=== PATIENT | male | born 1990 | race Caucasian/White ===

== ENCOUNTER 2018-10-06 10:08 | Emergency (ER) | payer SELFPAY ==
[2018-10-06] MEDS ORDERED: Acetaminophen/HYDROcodone 325-5 MG Tab PO ONE (10:29)
--- NOTE | 2018-10-06 10:34 | EDM.PDOC ---
ED HPI GENERAL MEDICAL PROBLEM - General Chief Complaint: ENT Problem Stated Complaint: FLASH BURN Time Seen by Provider: 10/06/18 10:19 Source of Information: Reports: Patient, RN Notes Reviewed - History of Present Illness INITIAL COMMENTS - FREE TEXT/NARRATIVE: 28-year-old male comes in with severe bilateral eye discomfort. 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 Not believe he experienced any UV light exposure from his old welding, he is very careful with his own helmet and I protection but states he did catch some flash from a different welder apprentice arc that he had to try help out with a difficult problem. He came off duty about 4 hours ago started having severe pain both eyes about an hour ago. He did not get anything into either eye from grinding or other shop activities. He does not wear contacts. Bilateral Eye Pain Score (Numeric/FACES): 8 - Related Data Allergies Allergy/AdvReac Type Severity Reaction Status Date / Time No Known Allergies Allergy Verified 10/06/18 10:17 Home Meds: Home Meds Acetaminophen/HYDROcodone [[place] 325-5 MG] 1 tab PO Q6H PRN #10 tablet 10/06/18 [Rx] ED ROS ENT - Review of Systems Review Of Systems: See Below Constitutional: Denies: Fever, Chills HEENT: Reports: Eye Pain (Bilateral). Denies: Eye Discharge Respiratory: Denies: Shortness of Breath Cardiovascular: Denies: Chest Pain GI/Abdominal: Denies: Nausea, Vomiting Musculoskeletal: Reports: No Symptoms Skin: Reports: No Symptoms. Denies: Rash Neurological: Reports: Paresthesia ED EXAM, ENT - Physical Exam Exam: See Below General Appearance: Alert, Moderate Distress Eye Exam: Bilateral Eye: PERRL, Other (Unable to do visual exam until I did anesthetize his eyes with proparacaine drops, with that his pain did go away, no foreign body cornea or sclera either eye, cornea is clear bilat) Nose: Normal Inspection Mouth/Throat: Normal Inspection Head: No: Facial Swelling Neck: Supple Respiratory/Chest: No Respiratory Distress Skin: Warm, Dry, Normal Color Course - Vital Signs Last Recorded V/S: Last Vital Signs Temp 97.6 F 10/06/18 10:14 Pulse 86 10/06/18 10:14 Resp 18 10/06/18 10:14 BP 163/125 H 10/06/18 10:14 Pulse Ox 100 10/06/18 10:14 - Orders/Labs/Meds Meds: Medications Discontinued Medications Generic Name Dose Route Start Last Admin Trade Name Arlene PRN Reason Stop Dose Admin Hydrocodone Bitart/Acetaminophen 1 tab 10/06/18 10:29 10/06/18 10:52 [place] 325-5 Mg PO 10/06/18 10:30 1 tab ONETIME ONE Administration - Re-Assessments/Exams Free Text/Narrative Re-Assessment/Exam: 10/06/18 11:20 As noted he did get good relief of his discomfort after topical proparacaine drops. His history is very atypical for UV welding light exposure. Has UV keratitis. We have given him one hydrocodone here in the ED, prescription provided for further hydrocodone to take today if needed for severe pain. At this before, he knows what to expect. He understands that symptoms should resolve over the next 24-48 hours. Departure - Departure Time of Disposition: 10:31 Disposition: Home, Self-Care 01 Condition: Fair Clinical Impression: Ultraviolet keratitis of both eyes - Discharge Information Prescriptions: Acetaminophen/HYDROcodone [[place] 325-5 MG] 1 tab PO Q6H PRN #10 tablet PRN Reason: Pain Instructions: Ultraviolet Keratitis, [id number], How to Use Eye Drops and Eye Ointments Referrals: PCP,None [Primary Care Provider] - Forms: ED Department Discharge Additional Instructions: Rest, avoid further welding light exposure, no work recommended until Monday. He may take Tylenol or ibuprofen for mild to moderate discomfort or hydrocodone if needed for more severe pain. Do not take Tylenol and hydrocodone at the same time. Do not drive or work when taking hydrocodone. See eye doctor if not back to normal by Monday as expected.
== END 2018-10-06 10:54 | disposition home or self-care (01) ==
LOC: JD.ED 10:08
DX: H16.133 Photokeratitis, bilateral (principal)
CPT/HCPCS: 99283; A9270

== ENCOUNTER 2018-10-10 22:18 | Emergency (ER) | payer SELFPAY ==
--- NOTE | 2018-10-10 23:03 | EDM.PDOC ---
ED HPI GENERAL MEDICAL PROBLEM - General Chief Complaint: Lower Extremity Injury/Pain Stated Complaint: LEFT KNEE SWOLLEN & PAINFUL Time Seen by Provider: 10/10/18 22:37 Source of Information: Reports: Patient, RN Notes Reviewed History Limitations: Reports: No Limitations - History of Present Illness INITIAL COMMENTS - FREE TEXT/NARRATIVE: The patient states that he developed sudden-onset left anterior knee pain around 18:00. He states that he was engaging in sexual intercourse, and that he had been weightbearing on his left knee for some time. He states that it was when he went to straighten his left lower extremity that he developed the pain. No other injury to the knee. No prior similar symptoms. The patient states that he took 600 mg of ibuprofen shortly after the pain developed. The patient does not have a PCP. Left Knee Pain Score (Numeric/FACES): 8 - Related Data Allergies Allergy/AdvReac Type Severity Reaction Status Date / Time No Known Allergies Allergy Verified 10/06/18 10:17 Home Meds: Home Meds Acetaminophen/HYDROcodone [[place] 325-5 MG] 1 tab PO Q6H PRN #10 tablet 10/06/18 [Rx] Past Medical History Genitourinary History: Reports: Other (See Below) (Congenital left renal atresia ) - Past Surgical History GI Surgical History: Reports: Appendectomy Male Surgical History: Reports: Other (See Below) (Right kidney biopsy) Social & Family History - Tobacco Use Smoking Status *Q: Current Every Day Smoker Years of Tobacco use: 6 Packs/Tins Daily: 1 - Caffeine Use Caffeine Use: Reports: Soda, Tea - Alcohol Use Alcohol Use History: Yes Alcohol Use Frequency: Binges (Drinks heavily 3 days/week) - Recreational Drug Use Recreational Drug Use: Yes Drug Use in Last 12 Months: No Recreational Drug Type: Reports: Marijuana/Hashish (last smoked in 2012) - Living Situation & Occupation Living situation: Reports: Single, Other (Roommate) Occupation: Employed ([email or web address]) Review of Systems - Review of Systems Review Of Systems: ROS reveals no pertinent complaints other than HPI. ED EXAM, GENERAL - Physical Exam Exam: See Below Exam Limited By: No Limitations General Appearance: Alert, WD/WN, No Apparent Distress Extremities: Other (Mild swelling to the left quadriceps tendon area, with associated tenderness. Mild tenderness to palpation along the lateral aspect of the patella, although there is minimal, if any swelling to this area., If any, tenderness, with no associated swelling to the patellar tendon. No joint effusion appreciated. The knee joint itself is stable, with no laxity to testing the medial or lateral collateral ligaments. Anterior and posterior drawer signs are negative. Neurovascular status of the left lower extremity is intact.) Course - Vital Signs Last Recorded V/S: Last Vital Signs Temp 37.2 C 10/10/18 22:30 Pulse 78 10/10/18 22:30 Resp 20 10/10/18 22:30 BP 158/109 H 10/10/18 22:30 Pulse Ox 97 10/10/18 22:30 - Orders/Labs/Meds Orders: Active Orders 24 hr Category Date Time Status DME for Discharge [COMM] Stat Oth 10/10/18 22:53 Ordered - Re-Assessments/Exams Free Text/Narrative Re-Assessment/Exam: 10/10/18 22:54 Based on the patient's history and physical examination, I suspect that he dislocated his patella laterally, with spontaneous reduction. Currently, his patella is in good position, but with some local tenderness. I have ordered a knee immobilizer, and am recommending that the patient ice his knee and take [id number] ibuprofen for the next few days. If his knee is not all better by 10/15/2018, I would like the patient follow-up with Dr. Bella, as he may require PT. Departure - Departure Time of Disposition: 22:55 Disposition: Home, Self-Care 01 Condition: Fair Clinical Impression: Lateral dislocation of left patella - Discharge Information *PRESCRIPTION DRUG MONITORING PROGRAM REVIEWED*: Not Applicable *COPY OF PRESCRIPTION DRUG MONITORING REPORT IN PATIENT MURIEL: Not Applicable Instructions: Patellar Dislocation, [id number] Referrals: Jose Carlos Bella MD [Physician] - Forms: ED Department Discharge, ED Return to Work/School Form Additional Instructions: You were seen in the emergency room after developing sudden onset left knee pain when extending your leg after it had been bent with weightbearing for a while. Based on your history and physical examination, you most likely suffered a lateral dislocation of your patella (kneecap) with spontaneous reduction (going back into place). You have been fitted with a knee immobilizer. Put this on over your jeans every morning, and remove at bedtime. Be careful going up and down stairs with the knee immobilizer on. Ice your left knee as much as possible over the next few days. Take [id number] ibuprofen, 2-3 tablets (400-600 mg) every 8 hours, with food, as needed for discomfort. A note for work has been provided to you. If your left knee is still painful and swollen by 10/15/2018, please follow-up with the Orthopedic Surgeon Dr. Jose Carlos Bella, as physical therapy may be necessary. If any other problems, please do not hesitate to return to the ER. - My Orders Last 24 Hours: My Active Orders 10/10/18 22:53 DME for Discharge [COMM] Stat - Assessment/Plan Last 24 Hours: My Active Orders 10/10/18 22:53 DME for Discharge [COMM] Stat
== END 2018-10-10 23:11 | disposition home or self-care (01) ==
LOC: JD.ED 22:18
DX: S83.015A Lateral dislocation of left patella, initial encounter (principal); X58.XXXA Exposure to other specified factors, initial encounter; F17.210 Nicotine dependence, cigarettes, uncomplicated
CPT/HCPCS: 99282; 99283